=== PATIENT | female | born 1985 | race Caucasian/White ===

== ENCOUNTER 2016-09-28 10:42 | Inpatient (IN) | payer BC ==
[2016-09-28 11:36] LABS: Basophils % (A) 0 %; CH 31.1; CHCM 33.1; Eosinophils % (A) 1 %; HCT 35.8 % (34.0-46.0); HDW 2.42; HGB 11.8 gm/dL (11.4-16.0); Luc # (Auto) 0.23; Luc % (Auto) 3; Lymphocytes # (A) 1.5 k/uL (1.0-4.8); Lymphocytes % (A) 20 %; MCH 31.2 pg (25.0-35.0); MCV 94.6 fL (80.0-100.0); Mean Platelet Volume 9.7; Monocytes # (A) 0.4 k/uL (0-1.0); Monocytes % (A) 5 %; Neutrophils # (A) 5.2 k/uL (1.3-7.7); Neutrophils % (A) 70 %; RBC 3.78 m/uL (3.80-5.40); RDW 13.5 % (11.5-15.5); WBC 7.3 k/uL (3.8-10.6); WBC (Perox) 8.25
[2016-09-28 11:49] LABS: ALT 29 U/L (9-52); AST 18 U/L (14-36); LDH 457 U/L (313-618); Non-African American GFR(MDRD) >60 (>60 ml/min/1.73 sqM); Uric Acid 5.7 mg/dL (3.7-7.4)
[2016-09-28 12:06] LABS: Appearance,Urine Clear (Clear); Bacteria,Urine Few /hpf; Bilirubin,Urine Negative (Negative); Glucose,Urine (UA) Negative (Negative); Ketones,Urine Negative (Negative); Leukocyte Esterase,Urine Small (Negative); Nitrite,Urine Negative (Negative); Particle Count 4242; Protein,Urine Negative (Negative); Specific Gravity,Urine 1.005 (1.001-1.035); UA Billing (MACRO vs. MICRO) MICRO; Urobilinogen,Urine <2.0 mg/dL (<2.0); WBC,Urine 1 /hpf (0-5)
--- NOTE | 2016-09-28 12:45 | P.PN ---
Progress Note - Text This is a progress note on this Mechelle Machuca. This patient is a pleasant 31- year-old 2 para 1 female 36-3/7 weeks gestation who presented to my office for nonstress test due to history of severe preeclampsia. Patient was seen by maternal medicine yesterday and had a biophysical profile that was 8 out of 8 and a normal ultrasound with normal amniotic fluid index. Patient however states that her blood pressure there was 150/80 and had one isolated blood pressure done and she did not have any repeat blood pressures done. Patient informed me that she was told to get her blood pressure repeated today in my office with a nonstress tests. I sent the patient to labor and delivery for serial blood pressures and preeclampsia evaluation. Labs here are normal, however her blood pressures are elevated 140s over 80s. Given the patient's history of severe preeclampsia with help syndrome and these documented elevated blood pressures, current recommendations are to proceed with delivery at 37 weeks if reassuring monitoring. For this reason I'm going to watch her on labor and delivery for approximately 4-5 hours and do serial blood pressures. If she remains where she is now and reactive NST then will be discharged home to follow up on Sunday for repeat nonstress test and blood pressures. Plan is to proceed with induction on Sunday if continued reassuring antepartum surveillance. I have had a long discussion with the patient about this plan and she agrees.
[2016-09-28] MEDS ORDERED: LIDOCAINE 1% (PF) 10 MG/ML (30 ML SDV) SQ PRN (15:06)
[2016-09-28] MEDS ORDERED: CARBOPROST TROMETHAMINE 250 MCG/ML 1 ML AMP IM PRN (15:06)
[2016-09-28] MEDS ORDERED: METHYLERGONOVINE 0.2 MG/ML 1 ML AMP IM PRN (15:06)
[2016-09-28] MEDS ORDERED: OXYTOCIN 10 UNIT/ML 1 ML VIAL IM PRN (15:06)
[2016-09-28] MEDS ORDERED: TERBUTALINE 1 MG/ML VIAL SQ PRN (15:06)
[2016-09-28] MEDS ORDERED: OXYTOCIN 30 UNITS/500 ML NS 30 UNIT in SALINE 1 500ML.BAG IV SCH (15:15)
[2016-09-28] MEDS ORDERED: LACTATED RINGERS 1,000 ML IV SCH (15:15)
[2016-09-28 15:39] LABS: Basophils % (A) 0 %; CH 31.2; CHCM 33.4; Eosinophils % (A) 0 %; HCT 38.6 % (34.0-46.0); HDW 2.42; HGB 12.6 gm/dL (11.4-16.0); Luc # (Auto) 0.19; Luc % (Auto) 2; Lymphocytes # (A) 1.5 k/uL (1.0-4.8); Lymphocytes % (A) 20 %; MCH 30.8 pg (25.0-35.0); MCHC 32.7 g/dL (31.0-37.0); Mean Platelet Volume 9.9; Monocytes # (A) 0.3 k/uL (0-1.0); Monocytes % (A) 5 %; Neutrophils # (A) 5.6 k/uL (1.3-7.7); Neutrophils % (A) 73 %; RDW 13.6 % (11.5-15.5); WBC 7.6 k/uL (3.8-10.6); WBC (Perox) 8.29
[2016-09-28 15:49] LABS: INR 0.9 (<1.1); Partial Thromboplastin Time 24.4 sec (22.0-30.0); Prothrombin Time 9.7 sec (9.0-12.0)
[2016-09-28] MEDS ORDERED: BETAMET ACET-BETAMETH SOD PHOS 6 MG/ML VIAL IM SCH (17:00)
[2016-09-28 17:58] VITALS: BMI 24.9
--- NOTE | 2016-09-28 18:34 | P.HPOB ---
History of Present Illness H&P Date: 09/28/16 Chief Complaint: Gestational hypertension This patient is a pleasant 31-year-old 2 para 1 female estimated date of confinement 10/23/2016 estimated gestational age 36-3/7 who presented to my office today for nonstress test and informed me that she had elevated blood pressure at maternal medicine the day prior. Patient sent to labor and delivery for evaluation of preeclampsia. Labs are normal. Patient's blood pressures however significantly elevated after observation ranging from 120 to 130s over 80s to 170s over 90s. I did contact Dr. Dye ([facility]) and discussed her care because he has been comanaging her and he recommended that we proceed with delivery if persistent blood pressure elevations or other signs and symptoms. Patient now presents for delivery. Patient's history is such that she had severe preeclampsia with help syndrome at 36 weeks with her last . This was at [facility] and they did a section due to unfavorable cervix. Patient has requested . Patient also has had serial ultrasounds with maternal medicine has shown a posterior succenturiate lobe. Patient's is V of the product of IUI with Dr. Nielsen. Review of Systems Constitutional: Denies chills, Denies fever Ears, nose, mouth and throat: Denies headache, Denies sore throat Cardiovascular: Denies chest pain, Denies shortness of breath Respiratory: Denies cough Gastrointestinal: Reports heartburn Genitourinary: Reports Menstruation: Reports amenorrhea Musculoskeletal: Denies myalgias Integumentary: Denies pruritus, Denies rash Neurological: Denies numbness, Denies weakness Past Medical History Past Medical History: Asthma History of Any Multi-Drug Resistant Organisms: None Reported Past Surgical History: Section Additional Past Surgical History / Comment(s): lasix surgery, septoplasty Past Anesthesia/Blood Transfusion Reactions: No Reported Reaction Past Psychological History: Anxiety Additional Psychological History / Comment(s): after first child Smoking Status: Former smoker Past Alcohol Use History: None Reported Past Drug Use History: None Reported - Past Family History Mother Family Medical History: Hypertension, Neurologic Disorder, Thyroid Disorder Medications and Allergies Home Medications Medication Instructions Recorded Confirmed Type Xtu-Rplz-Cslmt Acid 1 tab PO DAILY 09/28/16 09/28/16 History [-U Capsule] Allergies Allergy/AdvReac Type Severity Reaction Status Date / Time No Known Allergies Allergy Verified 09/28/16 10:54 Exam - Vital Signs Vital signs: Vital Signs Temp Pulse Resp BP 09/28/16 18:03 63 187/92 09/28/16 17:00 60 153/89 09/28/16 16:00 95.9 F L 74 20 139/85 09/28/16 15:30 65 157/90 09/28/16 14:30 70 154/92 09/28/16 13:30 65 140/94 09/28/16 12:39 76 176/98 Intake and Output 09/28/16 09/28/16 09/28/16 06:59 14:59 22:59 Other: Weight 65.771 kg 65.771 kg Patient Weight 09/29/16 06:59 Weight 65.771 kg - OBG Physical Exam Abdomen: bowel sounds normal, no diffuse tenderness, no bruit present, no guarding noted, no hepatomegaly, no splenomegaly, no mass Vulva: both: normal Vagina: normal moisture, no discharge Cervix: cervix is 2 cm dilated 50% effaced and soft. Uterus: enlarged (Fundal height is consistent with 36 weeks) Results Patient had a ultrasound yesterday at maternal medicine which showed estimated weight at 5 lbs. 10 oz. Result Diagrams: 09/28/16 15:25 09/28/16 11:14 Abnormal Lab Results - Last 24 Hours (Table) 09/28/16 09/28/16 Range/Units 10:50 11:14 RBC 3.78 L (3.80-5.40) m/uL Ur Leukocyte Esterase Small H (Negative) Urine Bacteria Few H (None) /hpf Assessment and Plan (1) Third trimester Narrative/Plan: This is a pleasant 31-year-old 2 para 1 female 36-3/7 weeks gestation with gestational hypertension and significant persistent blood pressure elevation. In consultation with maternal- medicine, recommendation is to proceed with delivery at this time. Patient does desire trial of . She and I have had multiple discussions about this risks and benefits. She understands if there is any concern for well-being will have to proceed with section at that time. Plan at this time is to proceed with induction of labor and anticipate vaginal delivery. Status: Acute (2) Gestational hypertension Status: Acute (3) Previous delivery affecting Status: Acute
[2016-09-28] MEDS: OXYTOCIN 30 UNITS/500 ML NS 30 UNIT in SALINE 1 500ML.BAG IV SCH (20:28)
[2016-09-28] MEDS ORDERED: HYDROCORTISONE 2.5% RECTAL CREAM 30 GM TUBE RECTAL PRN (20:42)
[2016-09-28] MEDS ORDERED: BENZOCAINE/MENTHOL SPRAY 1 GM/SPRAY AEROSOL TOPICAL PRN (20:42)
[2016-09-28] MEDS ORDERED: diphenhydrAMINE 25 MG CAP PO PRN (20:42)
[2016-09-28] MEDS ORDERED: MEASLES-MUMPS-RUBELLA VACC/PF 12,500 UNIT/0.5 ML VIAL SQ ONE (20:42)
[2016-09-28] MEDS ORDERED: LANOLIN CREAM 5 GM TUBE TOPICAL PRN (20:42)
[2016-09-28] MEDS ORDERED: ACETAMINOPHEN TAB 325 MG TAB PO PRN (20:42)
[2016-09-28] MEDS ORDERED: WITCH HAZEL 1 EACH MED..PAD TOPICAL PRN (20:42)
[2016-09-28] MEDS ORDERED: Acetaminophen-Codeine 300-30mg TAB PO PRN ×2 (20:42)
[2016-09-28] MEDS ORDERED: diphenhydrAMINE 50 MG/ML 1 ML VIAL IVP PRN (20:42)
[2016-09-28] MEDS ORDERED: ZOLPIDEM 5 MG TAB PO PRN (20:42)
[2016-09-28] MEDS ORDERED: SIMETHICONE 80 MG CHEWABLE PO PRN (20:42)
--- NOTE | 2016-09-28 20:51 | P.PROBDLV ---
Vaginal Delivery Note - . Vaginal Delivery Note: Normal vaginal delivery viable female Apgars 9 and 9 delivery time is 2003 hours. Please see dictated H&P for intimate details of this patient's admission. In brief summary this is a pleasant 31-year-old 2 para 1 female 36-3/7 weeks gestation who is admitted with hypertension. Patient is 2-3 cm dilated has artificial rupture membranes for clear fluid. She has Pitocin augmentation of labor. Patient does desire . Patient does have an internal monitor placed and heart tones are reassuring. She progresses quickly and does not can anything for pain control. Patient gets to complete pushes the head to the perineum. Posterior perineum was infiltrated 1% lidocaine and a midline episiotomy is then made. We have controlled delivery of 's head over the perineum. Mouth and nares are bulb suctioned. There is a nuchal cord 1 which is loose and reduced. Then delivery anterior posterior shoulder and rest this infant's body. Is a vigorous viable female Apgars are 9 and 9 delivery time is 2003 hours. After delivery the infant the umbilical cord is doubly clamped and cut it appears to be trivascular. The placenta is then spontaneously delivered intact. Does appear to have a succinate lobe. Uterus firms up and she does have some constant trickling, therefore uterine massage and IV Pitocin is given. Estimated blood loss is 200 mL. Midline laceration is a second-degree repaired with 3-0 Vicryl usual fashion good reapproximation is noted. and mother are stable delivery room. All counts correct 3. There are no complications.
[2016-09-28] MEDS: IBUPROFEN 600 MG TAB PO PRN (21:53)
[2016-09-29] MEDS: OXYTOCIN 30 UNITS/500 ML NS 30 UNIT in SALINE 1 500ML.BAG IV SCH (02:12)
--- NOTE | 2016-09-29 05:53 | P.PNOBGVD ---
Subjective - Subjective Patient reports: Reports appetite normal, Reports voiding normally, Reports pain well controlled, Reports ambulating normally : doing well Objective - Latest Vital Signs Latest vital signs: Vital Signs Temp Pulse Resp BP 09/29/16 03:00 98 F 70 16 144/88 09/28/16 23:00 98 F 70 16 130/76 09/28/16 22:32 98.2 F 67 16 131/78 09/28/16 21:58 68 16 121/68 09/28/16 21:28 71 16 126/66 09/28/16 21:13 16 133/80 09/28/16 20:58 81 16 129/83 09/28/16 20:43 74 16 132/67 09/28/16 20:28 97.9 F 68 16 149/81 09/28/16 18:57 63 170/82 09/28/16 18:03 63 187/92 09/28/16 17:00 60 153/89 09/28/16 16:00 95.9 F L 74 20 139/85 09/28/16 15:30 65 157/90 09/28/16 14:30 70 154/92 09/28/16 13:30 65 140/94 09/28/16 12:39 76 176/98 Intake and Output 09/28/16 09/28/16 09/29/16 14:59 22:59 06:59 Output Total 1600 Balance -1600 Output: Estimated Blood Loss 1600 Other: # Voids 1 Weight 65.771 kg 65.771 kg Patient Weight 09/29/16 06:59 Weight 65.771 kg - Exam Lungs: bilateral: normal Chest: Normal S1, Normal S2 Extremities: Present: normal Abdomen: Present: normal appearance, soft Uterus: Present: normal, firm - Labs Labs: Abnormal Lab Results - Last 24 Hours (Table) 09/28/16 09/28/16 Range/Units 10:50 11:14 RBC 3.78 L (3.80-5.40) m/uL Ur Leukocyte Esterase Small H (Negative) Urine Bacteria Few H (None) /hpf Assessment and Plan (1) Third trimester Narrative/Plan: day #1. Patient is resting without new complaints. Blood pressures are much improved since delivery in the 130-140/70-80 range. Uterus is firm nontender she's having normal lochia. My impression this is a normal course. Plan is to continue routine care most likely will be discharged home tomorrow. Dr. Thomas will see the patient for me tomorrow. Current Visit: Yes Status: Acute Code(s): Z33.1 - STATE, INCIDENTAL SNOMED Code(s): 64476937 (2) Gestational hypertension Current Visit: Yes Status: Acute Code(s): O13.9 - GESTATIONAL HTN W/O SIGNIFICANT PROTEINURIA, UNSP TRIMESTER SNOMED Code(s): 76283311 (3) Previous delivery affecting Current Visit: Yes Status: Acute Code(s): O34.219 - MATERNAL CARE FOR UNSP TYPE SCAR FROM PREVIOUS DEL SNOMED Code(s): 194386182
[2016-09-29] MEDS: IBUPROFEN 600 MG TAB PO PRN ×2 (07:45→23:37)
[2016-09-29] MEDS: SENNOSIDES-DOCUSATE SODIUM 1 EACH TAB PO SCH ×2 (07:45→21:48)
[2016-09-29] MEDS ORDERED: SENNOSIDES-DOCUSATE SODIUM 1 EACH TAB PO SCH (08:00)
[2016-09-29 12:47] VITALS: RESP 16
[2016-09-30] MEDS: SENNOSIDES-DOCUSATE SODIUM 1 EACH TAB PO SCH (08:44)
[2016-09-30 08:51] VITALS: BP 137/72; PULSE 80; TEMP 98.2
--- NOTE | 2016-09-30 11:09 | P.DS ---
Providers Date of admission: 09/28/16 14:43 Expected date of discharge: 09/30/16 Attending physician: Norman Silva Primary care physician: Stated None - Discharge Diagnosis(es) (1) Normal vaginal delivery Current Visit: Yes Status: Acute Hospital Course: Pt presented for induction of labor due to elevated blood pressures. She underwent a normal vaginal delivery and had an uncomplicated post course. She will be discharged home PPD #2 in stable condition to follow up with Dr Silva in 6 weeks. Plan - Discharge Summary New Discharge Prescriptions: Acetaminophen-Codeine 300-30mg [Tylenol w/codeine #3] 1 - 2 each PO Q4HR PRN # 30 tab PRN Reason: Mild Pain exceeding Tylenol Ibuprofen [Motrin] 600 mg PO Q6HR PRN #40 tab PRN Reason: Mild Pain Or Fever >= 100.5 Discharge Medication List Zrj-[id number]-[id number] Acid [-U Capsule] 1 tab PO DAILY 09/28/16 [ History] Acetaminophen-Codeine 300-30mg [Tylenol w/codeine #3] 1 - 2 each PO Q4HR PRN # 30 tab 09/29/16 [Rx] Ibuprofen [Motrin] 600 mg PO Q6HR PRN #40 tab 09/29/16 [Rx] Follow up Appointment(s)/Referral(s): Norman Silva MD [STAFF PHYSICIAN] - 6 Weeks Patient Instructions/Handouts: Vaginal Delivery (DC) Activity/Diet/Wound Care/Special Instructions: No intercourse or anything per vagina for 6 weeks. Please call if any fever, chills, excessive vaginal bleeding, and/or abdominal pain Discharge Disposition: HOME SELF-CARE
== END 2016-09-30 12:25 | disposition home or self-care (01) | DRG 775 ==
LOC: FBPOP 10:42 → 4FBP 14:43
PROVIDERS: ADMIT Obstetrics & Gynecology; ATTEND Obstetrics & Gynecology
PROC: 10E0XZZ Delivery of Products of Conception, External Approach (ICD-10-PCS; principal; 2016-09-28)
PROC: 0W8NXZZ Division of Female Perineum, External Approach (ICD-10-PCS; 2016-09-28)
PROC: 3E0134Z Introduction of Serum, Toxoid and Vaccine into Subcutaneous Tissue, Percutaneous Approach (ICD-10-PCS; 2016-09-28)
PROC: 4A1H74Z Monitoring of Products of Conception, Cardiac Electrical Activity, Via Natural or Artificial Opening (ICD-10-PCS; 2016-09-28)
PROC: 10H073Z Insertion of Monitoring Electrode into Products of Conception, Via Natural or Artificial Opening (ICD-10-PCS; 2016-09-28)
PROC: 10907ZC Drainage of Amniotic Fluid, Therapeutic from Products of Conception, Via Natural or Artificial Opening (ICD-10-PCS; 2016-09-28)
PROC: 3E033VJ Introduction of Other Hormone into Peripheral Vein, Percutaneous Approach (ICD-10-PCS; 2016-09-28)
DX: O13.4 Gestational [pregnancy-induced] hypertension without significant proteinuria, complicating childbirth (principal); J45.909 Unspecified asthma, uncomplicated; O69.81X0 Labor and delivery complicated by cord around neck, without compression, not applicable or unspecified; O34.211 Maternal care for low transverse scar from previous cesarean delivery; N85.8 Other specified noninflammatory disorders of uterus; Z37.0 Single live birth; Z3A.36 36 weeks gestation of pregnancy; Z23 Encounter for immunization; O99.52 Diseases of the respiratory system complicating childbirth; Z87.891 Personal history of nicotine dependence; Z86.59 Personal history of other mental and behavioral disorders
CPT/HCPCS: 59025; 81001; 82565; 83615; 84156; 84450; 84460; 84550; 85025; 85610; 85730; 86850; 86900; 86901; 88307; 90707

== ENCOUNTER 2021-04-22 09:49 | Emergency (ER) | payer BC ==
[2021-04-22 09:56] VITALS: TEMP 98.2
[2021-04-22] MEDS ORDERED: ORPHENADRINE 30 MG/ML 2 ML VIAL IVP STA (10:19)
[2021-04-22] MEDS ORDERED: KETOROLAC 15 MG/ML 1 ML VIAL IVP STA (10:19)
--- NOTE | 2021-04-22 10:40 | ED ---
General Adult HPI - General Chief complaint: Back Pain/Injury Stated complaint: back pain Time Seen by Provider: 04/22/21 10:00 Source: patient, RN notes reviewed Mode of arrival: wheelchair Limitations: physical limitation - History of Present Illness Initial comments: 36-year-old female with a past medical history of asthma presents to 2 the emergency room for a chief complaint of back pain. Patient states her about 6 weeks she has had low back pain. However today she went to cough and felt like it "went out." Patient states it is more painful today than it has been over the past 6 weeks. Patient denies any bladder or bowel changes, saddle anesthesia, weakness of the legs, or fevers or chills. Patient denies any pain radiating down the legs.Patient has no other complaints at this time including shortness of breath, chest pain, abdominal pain, nausea or vomiting, headache, or visual changes. - Related Data Home Medications Medication Instructions Recorded Confirmed Frj-Fres-Qsuzp Acid 1 tab PO DAILY 09/28/16 09/28/16 [-U Capsule (formulary)] Previous Rx's Medication Instructions Recorded Acetaminophen-Codeine 300-30mg 1 - 2 each PO Q4HR PRN #30 tab 09/29/16 [Tylenol w/codeine #3] Ibuprofen [Motrin] 600 mg PO Q6HR PRN #40 tab 09/29/16 Cyclobenzaprine [Flexeril] 10 mg PO TID #20 tab 04/22/21 Lidocaine 5% Patch [Lidoderm 5% 1 patch TOPICAL DAILY PRN 20 Days 04/22/21 Patch] #20 patch predniSONE 50 mg PO DAILY #5 tablet 04/22/21 Allergies Allergy/AdvReac Type Severity Reaction Status Date / Time No Known Allergies Allergy Verified 04/22/21 09:56 Review of Systems ROS Statement: Those systems with pertinent positive or pertinent negative responses have been documented in the HPI. ROS Other: All systems not noted in ROS Statement are negative. Past Medical History Past Medical History: Asthma History of Any Multi-Drug Resistant Organisms: None Reported Past Surgical History: Section Additional Past Surgical History / Comment(s): lasix surgery, septoplasty Past Anesthesia/Blood Transfusion Reactions: No Reported Reaction Past Psychological History: Anxiety Smoking Status: Never smoker Past Alcohol Use History: Occasional Past Drug Use History: None Reported - Past Family History Mother Family Medical History: Hypertension, Neurologic Disorder, Thyroid Disorder General Exam Limitations: physical limitation General appearance: alert, in no apparent distress Head exam: Present: atraumatic Eye exam: Present: normal appearance, PERRL, EOMI. Absent: scleral icterus ENT exam: Present: normal exam, mucous membranes moist Neck exam: Present: normal inspection, full ROM. Absent: tenderness Respiratory exam: Present: normal lung sounds bilaterally. Absent: respiratory distress, wheezes Cardiovascular Exam: Present: regular rate, normal rhythm, normal heart sounds GI/Abdominal exam: Present: soft. Absent: distended, tenderness Extremities exam: Present: normal capillary refill (cap refill less than 2 seconds in the lower extremities), other (5 out of 5 in bilateral lower extremities) Back exam: Absent: CVA tenderness (R), CVA tenderness (L), vertebral tenderness (No tenderness in the lumbar spine or paraspinal areas. No ecchymosis.) Course Vital Signs 04/22/21 09:54 Temperature 98.2 F Pulse Rate 84 Respiratory 18 Rate Blood Pressure 133/85 O2 Sat by Pulse 97 Oximetry Medical Decision Making - Medical Decision Making Vitals are stable. Patient is presenting for low back pain worse with sitting and movement. Better with standing up. Nonvascular status intact in lower extremities. No pain to palpation of the lumbar spine. X-ray shows no acute process. There is attempted sacralization. She was given Toradol and Norflex IV. She did have some improvement in pain and was able to ambulate. Patient was offered additional pain medication but states that the Norflex made her feel "high" she did not want anymore IV medications. At this time I discussed. Return parameters and the patient. I also discussed she follow up with orthopedics. She'll return here for any worsening symptoms.I discussed this case with attending Dr. Wiggins who agrees with this assessment and treatment plan. Disposition Clinical Impression: Mechanical back pain Disposition: HOME SELF-CARE Condition: Good Instructions (If sedation given, give patient instructions): Acute Low Back Pain (ED) Additional Instructions: Take Motrin and Tylenol Vasquez for pain. If pain is severe take Tylenol 3. Take other medications as directed. Do not drive or operate machinery will taking Tylenol 3 for Flexeril. Please follow up with orthopedics by calling for the earliest appointment. If you have worsening symptoms such as bladder or bowel changes, numbness of the groin or buttock, weakness of the legs, or fevers or chills return to the emergency room. Prescriptions: Cyclobenzaprine [Flexeril] 10 mg PO TID #20 tab Lidocaine 5% Patch [Lidoderm 5% Patch] 1 patch TOPICAL DAILY PRN 20 Days #20 patch PRN Reason: Pain predniSONE 50 mg PO DAILY #5 tablet Is patient prescribed a controlled substance at d/c from ED?: No Referrals: Humaira Sweeney, ELDA [Primary Care Provider] - 1-2 days Lg Parekh DO [Doctor of Osteopathic Medicine] - 1-2 days Milton Gandhi DO [Doctor of Osteopathic Medicine] - 1-2 days Time of Disposition: 11:27
--- NOTE | 2021-04-22 10:56 | XR ---
EXAMINATION TYPE: XR lumbar spine 2 or 3V DATE OF EXAM: 04/22/2021 COMPARISON: None HISTORY: Pain TECHNIQUE: 3 view lumbar spine FINDINGS: There are 5 lumbar-type vertebral bodies. Pedicles are intact. There is attempted sacraliza tion of L5 greater on the right. Vertebral body heights are preserved. Alignment is normal. Disc heig hts are preserved. IMPRESSION: 1. Attempted sacralization of L5. 2. Lumbar spine is otherwise unremarkable.
[2021-04-22] MEDS ORDERED: ACET/COD 300 MG/30 MG STARTER PACK 6 TAB BTL PO STA (11:27)
[2021-04-22 11:49] VITALS: BP 109/71; PULSE 72; RESP 16
== END 2021-04-22 11:42 | disposition home or self-care (01) ==
LOC: EC 09:49
DX: M54.89 Other dorsalgia (principal); J45.909 Unspecified asthma, uncomplicated; F41.9 Anxiety disorder, unspecified; Z79.1 Long term (current) use of non-steroidal anti-inflammatories (NSAID); Z79.52 Long term (current) use of systemic steroids
CPT/HCPCS: 72100; 99283; 96374; 96375; J2360; J1885

== ENCOUNTER → 2024-10-23 | Outpatient (CLI) | payer BC ==
--- NOTE | 2024-10-23 10:48 | MM ---
Reason for Exam: Clinical finding. Baseline mammogram. Indicated Problems: Lump or thickening of the right side for 15 Year(s). Patient History: Menarche at age 16. First Full-Term at age 23. Last menstrual period: 10/15/2024 Risk Values: Jane 5 year model risk: 0.3%. NCI Lifetime model risk: 8.4%. Prior Study Comparison: Patient's first Mammogram. No prior studies available for comparison. Tissue Density: The breasts are extremely dense, which lowers the sensitivity of mammography. Findings: Analyzed By CAD. Palpable marker along the lateral posterior aspect of the right breast. Given the extremely dense breast tissue, unable to clearly determine if there is an underlying lesion, possible 2.5 cm area of dense tissue versus mass/cyst. At least one other possible 1 cm mass/cyst probably 3-4 o'clock right breast. Regional benign punctate and round calcifications are noted in the upper quadrant. No suspicious microcalcification is seen. Overall Assessment: Incomplete: need additional imaging evaluation, BI-RAD 0 Management: Diagnostic Breast Ultrasound of the right breast. [facility], , 10/23/2024 10:45 AM. Electronically signed and approved by: Manav Wilkins M.D. Radiologist
--- NOTE | 2024-10-23 11:23 | USB ---
Patient History: Menarche at age 16. First Full-Term at age 23. Risk Values: Jane 5 year model risk: 0.3%. NCI Lifetime model risk: 8.4%. Technique: Method: Whole Breast Handheld. Findings: The whole breast of the right breast, the axilla of the right breast and the retroareolar of the right breast were scanned. A complete US of all four quadrants of the breast, axilla, and retro-areolar region were reviewed. At the patient's 9:00 palpable site, there is a large oval hypoechoic solid mass with through transmission measuring 3.0 x 2.8 x 0.9 cm. Dense tissue is present throughout. At the 3:00 position, 5 cm from the nipple, there is a benign 1.0 cm cyst. No other solid or cystic lesion or axillary adenopathy. Overall Assessment: Suspicious, BI-RAD 4 Management: Ultrasound Core Biopsy of the right breast. For the 3.0 cm solid mass at the patient's palpable site, suspected fibroadenoma. Results were given to the patient verbally at the time of exam. [facility], , 10/23/2024 11:20 AM. Electronically signed and approved by: Manav Wilkins M.D. Radiologist
== END | disposition home or self-care (01) ==
LOC: RADMAMWWP 10:08
PROVIDERS: ATTEND Family Medicine
DX: R92.343 Mammographic extreme density, bilateral breasts (principal); N64.4 Mastodynia; N63.31 Unspecified lump in axillary tail of the right breast
CPT/HCPCS: 77062; 77066

== ENCOUNTER → 2024-11-06 | Day surgery (SDC) | payer BC ==
--- NOTE | 2024-11-17 10:59 | MM ---
Reason for Exam: Post Procedure Mammogram. Last screening mammogram was performed less than 1 month ago. Patient History: Menarche at age 16. First Full-Term at age 23. Risk Values: Jane 5 year model risk: 0.3%. NCI Lifetime model risk: 8.4%. Prior Study Comparison: 10/23/2024 Bilateral MG 3D diag mammo w/cad [facility]. Tissue Density: Right: The breasts are extremely dense, which lowers the sensitivity of mammography. Pathology Description: Location: 9 o'clock. Needle Type: Celero Cores: 2 Gauge: 12 The procedure of ultrasound guided core biopsy was explained to the patient. Benefits, alternatives, and risks were discussed. An informed consent was then obtained. The patient was placed in supine positioning for imaging and for the procedure. Preprocedure ultrasound redemonstrates an oval circumscribed hypoechoic mass measuring around 2.5 cm long axis at 9:00 position in the right breast 8 cm distance from nipple The overlying skin was prepped and draped in usual sterile fashion. Lidocaine buffered with bicarbonate was used as anesthetic into the skin and subcutaneous tissue up to area of concern in the right breast. A juhi was made with surgical scalpel. Under ultrasound guidance, a back year old assisted biopsy gun device was used to obtain 2 core samples. Following this, a biopsy clip was left in lesion. The patient tolerated the procedure well without any immediate complication. The patient was kept in the radiology department for short stay after the procedure and then discharged home in stable condition. Impression: Successful, uncomplicated ultrasound guided core biopsy of area of concern in the right breast, full pathology results to follow. Low index of suspicion noted at time of procedure. Suspect fibroadenoma. [facility], , 11/06/2024 1:28 PM. Pathology Results: Result: Benign, Fibroadenoma. Pathology and radiology were reviewed. Findings are concordant. RIGHT BREAST, 9:00, ULTRASOUND GUIDED CORE BIOPSY: Benign and sclerotic fibroadenoma (see note). Notes It is noted that a 10/23/24 ultrasound report states that there is a large hypoechoic solid mass measuring 3.0 cm at the 9:00 right breast. The histologic findings seen within the current case are compatible with a fibroadenoma. Intradepartmental consultation with Dr. Jovani Arndt is in agreement with this assessment. Focal microcalcification is appreciated. Overall Assessment: Benign Assessment: MG diagnostic mammo RT wo CAD - Right: Benign, BI-RAD 2. Management: Diagnostic Breast Ultrasound of the right breast in 6 months. Electronically signed and approved by: Hernan Caraballo M.D.
== END ==
LOC: RADUSWWP 12:17
PROVIDERS: ATTEND Family Medicine
DX: D24.1 Benign neoplasm of right breast (principal)
CPT/HCPCS: 88305; 77065; 19083; A4648